=== PATIENT | male | born 1945 | race Caucasian/White ===

== ENCOUNTER 2019-04-29 15:28 | Emergency (ER) | payer MEDICARE, OTHER ==
--- NOTE | 2019-04-29 15:43 | ED Physician Documentation ---
History of Present Illness - Stated complaint Stated Complaint: SOA - Chief complaint Chief Complaint: Resp - History obtained from History obtained from: Patient - Additonal information Additional information: Patient is a 73-year-old male with history of congestive heart failure reported EF of 20% as evidenced on echocardiogram performed in [place] last month. Patient is presenting today with worsening shortness of breath on exertion. Patient is traveling from [place] and returns next week. Patient reports that he was admitted and had extensive work-up last month including cardiac cat h, CT imaging, echocardiogram and was discharged to a shelter facility of which she left several weeks ago. Patient has been compliant with all medications and is able to provide a partial medication list. Patient is not currently on anticoagulation. Patient denies chest pain, but admits to shortness of breath. No cough or fever. No abdominal pain, nausea, vomiting, urinary changes, or stool changes. Patient also denies paresthesias, paralysis, leg swelling or pain. However, he does state that he has had a sensation of heaviness in his legs which caused him to collapse yesterday without injury. No other improving or worsening factors noted. Review of Systems Constitutional: denies: Fever Cardiac: denies: Chest pain / pressure, Palpitations Respiratory: reports: Dyspnea. denies: Cough GI: denies: Abdominal Pain, Nausea, Vomiting, Constipation, Diarrhea : denies: Dysuria Musculoskeletal: denies: Extremity pain Neurologic: denies: Focal weakness, Numbness PD PAST MEDICAL HISTORY - Past Medical History Past Medical History: Yes Cardiovascular: Congestive heart failure - Past Surgical History Cardiovascular: Pacemaker - Present Medications Home Medications: Ambulatory Orders Medication Instructions Recorded Confirmed Amiodarone [Pacerone] 200 mg PO DAILY 04/29/19 04/29/19 Azithromycin [Zithromax] 250 mg PO DAILY #4 tablet 04/29/19 Carvedilol 6.25 mg PO DAILY 04/29/19 04/29/19 Sacubitril/Valsartan [Entresto 24 1 each PO DAILY 04/29/19 04/29/19 mg-26 mg Tablet] Tamsulosin [Flomax] 0.4 mg PO DAILY 04/29/19 04/29/19 - Allergies Allergies/Adverse Reactions: Allergies Allergy/AdvReac Type Severity Reaction Status Date / Time No Known Drug Allergies Allergy Verified 04/29/19 15:39 PD ED PE NORMAL - Vitals Vital signs reviewed: Yes - General General: Alert and oriented X 3, No acute distress, Well developed/nourished - HEENT HEENT: Atraumatic, Moist mucous membranes - Cardiac Cardiac: RRR, No murmur - Respiratory Respiratory: Clear bilaterally. No: No respiratory distress - Abdomen Abdomen: Normal bowel sounds, Soft, Non tender, Non distended - Derm Derm: Normal color, Warm and dry, No rash - Extremities Extremities: No deformity, No tenderness to palpate - Neuro Neuro: Alert and oriented X 3, No motor deficit, No sensory deficit - Psych Psych: Normal mood, Normal affect Results - Vitals Vitals: Vital Signs - 24 hr 04/29/19 04/29/19 04/29/19 15:31 15:41 16:03 Temperature 36.4 C L Heart Rate 79 71 Respiratory 34 H 26 H 24 Rate Blood Pressure 117/48 L 113/68 O2 Saturation 55 L 93 100 04/29/19 04/29/19 04/29/19 16:30 17:00 17:30 Temperature Heart Rate 75 72 71 Respiratory 23 21 26 H Rate Blood Pressure 121/72 111/68 105/67 O2 Saturation 96 92 93 04/29/19 04/29/19 04/29/19 18:00 18:30 19:00 Temperature Heart Rate 73 69 69 Respiratory 20 20 21 Rate Blood Pressure 111/70 97/58 L 116/79 O2 Saturation 96 98 98 04/29/19 04/29/19 04/29/19 19:19 19:30 20:03 Temperature Heart Rate 75 73 Respiratory 26 H 26 H Rate Blood Pressure 106/66 108/69 O2 Saturation 90 L 93 94 04/29/19 04/29/19 20:22 20:30 Temperature Heart Rate 76 Respiratory 22 Rate Blood Pressure 130/79 O2 Saturation 88 L 93 Oxygen O2 Source Nasal cannula Oxygen Flow Rate 2 - EKG (time done) 1536 Rate: Rate (enter#) (75) Rhythm: NSR, Paced Intervals: Prolonged QT - Labs Labs: Laboratory Tests 04/29/19 04/29/19 04/29/19 15:54 15:54 15:54 WBC 10.1 RBC 3.61 L Hgb 11.6 L Hct 34.7 L MCV 96.1 H MCH 32.1 H MCHC 33.4 RDW 14.0 Plt Count 500 H MPV 8.4 Neut # (Auto) 6.3 Lymph # (Auto) 2.2 Haakon # (Auto) 1.0 Eos # (Auto) 0.3 Baso # (Auto) 0.1 Absolute Nucleated RBC 0.00 Nucleated RBC % 0.0 VBG pH VBG pCO2 VBG pO2 VBG HCO3 VBG Total CO2 VBG O2 Saturation VBG Base Excess Sodium 137 Potassium 3.7 Chloride 100 L Carbon Dioxide 21 Anion Gap 16.0 H BUN 19 Creatinine 0.8 Estimated GFR (MDRD) 95 Glucose 141 H Lactic Acid Calcium 9.0 Total Bilirubin 0.7 AST 19 ALT 12 Alkaline Phosphatase 86 Troponin I < 0.04 B-Natriuretic Peptide Total Protein 7.3 Albumin 3.5 Globulin 3.8 Albumin/Globulin Ratio 0.9 L Lipase 31 Urine Color Urine Clarity Urine pH Ur Specific Nerinx Urine Protein Urine Glucose (UA) Urine Ketones Urine Occult Blood Urine Nitrite Urine Bilirubin Urine Urobilinogen Ur Leukocyte Esterase Ur Microscopic Review Urine Culture Comments 04/29/19 04/29/19 04/29/19 15:54 15:54 16:10 WBC RBC Hgb Hct MCV MCH MCHC RDW Plt Count MPV Neut # (Auto) Lymph # (Auto) Haakon # (Auto) Eos # (Auto) Baso # (Auto) Absolute Nucleated RBC Nucleated RBC % VBG pH 7.406 VBG pCO2 38.2 L VBG pO2 15.8 L VBG HCO3 23.5 VBG Total CO2 24.6 VBG O2 Saturation 20.0 L VBG Base Excess -1.0 Sodium Potassium Chloride Carbon Dioxide Anion Gap BUN Creatinine Estimated GFR (MDRD) Glucose Lactic Acid 2.5 H Calcium Total Bilirubin AST ALT Alkaline Phosphatase Troponin I B-Natriuretic Peptide 92 Total Protein Albumin Globulin Albumin/Globulin Ratio Lipase Urine Color Urine Clarity Urine pH Ur Specific Nerinx Urine Protein Urine Glucose (UA) Urine Ketones Urine Occult Blood Urine Nitrite Urine Bilirubin Urine Urobilinogen Ur Leukocyte Esterase Ur Microscopic Review Urine Culture Comments 04/29/19 16:42 WBC RBC Hgb Hct MCV MCH MCHC RDW Plt Count MPV Neut # (Auto) Lymph # (Auto) Haakon # (Auto) Eos # (Auto) Baso # (Auto) Absolute Nucleated RBC Nucleated RBC % VBG pH VBG pCO2 VBG pO2 VBG HCO3 VBG Total CO2 VBG O2 Saturation VBG Base Excess Sodium Potassium Chloride Carbon Dioxide Anion Gap BUN Creatinine Estimated GFR (MDRD) Glucose Lactic Acid Calcium Total Bilirubin AST ALT Alkaline Phosphatase Troponin I B-Natriuretic Peptide Total Protein Albumin Globulin Albumin/Globulin Ratio Lipase Urine Color YELLOW Urine Clarity CLEAR Urine pH 5.5 Ur Specific Nerinx 1.020 Urine Protein NEGATIVE Urine Glucose (UA) NEGATIVE Urine Ketones NEGATIVE Urine Occult Blood NEGATIVE Urine Nitrite NEGATIVE Urine Bilirubin NEGATIVE Urine Urobilinogen 0.2 (NORMAL) Ur Leukocyte Esterase NEGATIVE Ur Microscopic Review NOT INDICATED Urine Culture Comments NOT INDICATED PD MEDICAL DECISION MAKING - ED course Complexity details: reviewed results, re-evaluated patient, considered differential, d/w patient, d/w family ED course: Patient presenting with new onset hypoxia and shortness of breath, particularly with exertion concerning for cardiac pathology most particularly acute CHF exacerbation, but also considered PE, ACS, AL, unstable angina, aneurysm, dissection. Feel that CHF is the likely cause as opposed to the latter listed previously, particularly given lack of chest pain complaint. Additionally, patient had extensive cardiac work-up including catheterization, CTs, echocardiograms in the past 1 month which did not find evidence of significant stenosis and patient did not require coronary stenting. Do not feel that there is likely going to be a significant change from then until now. However, obtained EKG which did not reflect ischemia. Cardiac markers are also within normal limits including BNP and troponin. Do not feel patient requires repeat cardiac markers given duration of symptoms and previous recent cardiac work-up. Patient continued on supplemental oxygen. Screening lab work and urinalysis obtained, as well as chest x-ray. Screening lab work did not find significant leukocytosis, but lactate slightly elevated and VBG reflective of hypoxia. Patient's H&H decreased, but unsure of his baseline. Do not feel he requires transfusion today. Urinalysis unremarkable. Chest x-ray concerning for groundglass and reticular opacities in the bases. Had extensive discussion with patient during initial interview and again upon multiple re-evaluations. Patient is absolutely adamant that he does not want to be admitted and wants to be discharged home at the end of his evaluation. Discussed at length with patient and family the risks of such given my many concerns as listed above. Given the concern for pneumonia on chest x-ray, discussed starting antibiotics and as patient was recently hospitalized, would recommend IV antibiotics and admission. Again, patient declines and we eventually agreed that patient twill receive Rocephin and azithromycin. Patient to be treated as community-acquired so that this can be transitioned to oral medications upon discharge today as patient again refuses admission. Patient is made aware of this distinction between antibiotics and types of pneumonia. Patient also made aware of a ntibiotic reactivity with his cardiac medications, particularly amiodarone. CTA chest additionally obtained which reflected similar findings as the chest x-ray including no evidence of PE. Patient advised of results again. Again, recommended admission and patient declined. Patient signed AMA paperwork. Provided printouts and disc of all imaging. Worked significantly with respiratory therapy to try to obtain outpatient oxygen for this patient. Patient amenable to paying [id number] for this. RT able to arrange for oxygen at home. Otherwise, again patient refusing admission and he and family are comfortable with discharge plan including use of oxygen, oral antibiotics, close follow-up, and strict return precautions. Departure - Departure Disposition: Home, Self Care Clinical Impression: Hypoxia Pneumonia Qualifiers: Pneumonia type: due to unspecified organism Laterality: unspecified laterality Lung location: unspecified part of lung Qualified Code(s): J18.9 - Pneumonia, unspecified organism Congestive heart failure Qualifiers: Heart failure type: unspecified Heart failure chronicity: chronic Qualified Code(s): I50.9 - Heart failure, unspecified Condition: Fair Instructions: ED CHF General, ED Pneumonia Adult Follow-Up: your,molecular spectroscopist [Other] - Tomorrow Prescriptions: Azithromycin [Zithromax] 250 mg PO DAILY #4 tablet Comments: Please continue all home medications as previously instructed. Please take azithromycin starting tomorrow through completion to treat possible pneumonia. Please use oxygen as prescribed. Please contact your molecular spectroscopist, as well as your primary care physician on Wednesday. Return to ED sooner if experience worsening symptoms or have other concerns.
[2019-04-29 16:01] LABS: BASOPHILS # (AUTO) 0.1 10^3/uL (0.0-0.1); BASOPHILS % (AUTO) 1.1 %; EOSINOPHILS # (AUTO) 0.3 10^3/uL (0.0-0.7); EOSINOPHILS % (AUTO) 3.4 %; HGB - HEMOGLOBIN 11.6 g/dL (14.0-18.0); LYMPHOCYTES # (AUTO) 2.2 10^3/uL (1.5-3.5); LYMPHOCYTES % (AUTO) 21.7 %; MEAN CORPUSCULAR HEMOGLOBIN 32.1 pg (27.0-31.0); MEAN CORPUSCULAR HGB CONC 33.4 g/dL (32.0-36.0); MEAN CORPUSCULAR VOLUME 96.1 fL (80.0-94.0); MEAN PLATELET VOLUME 8.4 fL (7.4-11.4); MONOCYTES % (AUTO) 10.3 %; NEUTROPHILS # (AUTO) 6.3 10^3/uL (1.5-6.6); PLT - PLATELET COUNT 500 10^3/uL (130-450); RED BLOOD COUNT 3.61 10^6/uL (4.70-6.10); WHITE BLOOD COUNT 10.1 x10^3/uL (4.8-10.8)
[2019-04-29 16:15] LABS: ALBUMIN 3.5 g/dL (3.2-5.5); ALBUMIN/GLOBULIN RATIO 0.9 (1.0-2.2); BILIRUBIN,TOTAL 0.7 mg/dL (0.2-1.0); CREATININE 0.8 mg/dL (0.6-1.2); TOTAL PROTEIN 7.3 g/dL (6.7-8.2)
[2019-04-29 16:17] LABS: VBG PCO2 38.2 mmHg (41-51); VBG PH 7.406 (7.31-7.41); VBG PO2 15.8 mmHg (25-47); VBG TOTAL CO2 24.6 mmol/L (24-29)
--- NOTE | 2019-04-29 16:43 | XRAY Report ---
Reason: sob Procedure Date: 04/29/2019 Accession Number: [id number] / [id number] Procedure: XR - Chest 1 View X-Ray CPT Code: 66366 FULL RESULT: EXAM: CHEST RADIOGRAPHY EXAM DATE: 04/29/2019 04:24 PM. CLINICAL HISTORY: Shortness of breath COMPARISON: None. TECHNIQUE: 1 view. FINDINGS: Lungs/Pleura: Diffuse groundglass and reticular opacities, most pronounced at the bilateral bases. No pleural effusion or pneumothorax. Mediastinum: Normal cardiomediastinal contour. Left-sided bipolar AICD with atrial pacing lead and ventricular defibrillating lead. Other: The bones are unremarkable. IMPRESSION: Diffuse groundglass and reticular opacities, most pronounced at the bilateral bases. Differential considerations include edema, infection, and interstitial lung disease. RADIA
[2019-04-29] MEDS ORDERED: cefTRIAXone 1 GM in SODIUM CHLORIDE 0.9% MINIBAG 100 ML IV STA (16:46)
[2019-04-29] MEDS ORDERED: AZITHROMYCIN INJ 500 MG in SODIUM CHLORIDE 0.9% 250 ML IV STA (16:48)
[2019-04-29 17:06] LABS: BILIRUBIN,URINE NEGATIVE (NEGATIVE); GLUCOSE, URINE (UA) NEGATIVE (NEGATIVE); KETONES,URINE (UA) NEGATIVE (NEGATIVE); LEUKOCYTE ESTERASE, URINE NEGATIVE (NEGATIVE); NITRITE,URINE NEGATIVE (NEGATIVE); OCCULT BLOOD,URINE NEGATIVE (NEGATIVE); PH,URINE 5.5 PH (5.0-7.5); PROTEIN,URINE NEGATIVE (NEGATIVE); UROBILINOGEN,URINE 0.2 (NORMAL) E.U./dL (NORMAL)
[2019-04-29 17:07] LABS: CLARITY,URINE CLEAR (CLEAR)
[2019-04-29] MEDS ORDERED: IOVERSOL 320 100 ML VIAL IVP ONE ×2 (17:37→17:57)
--- NOTE | 2019-04-29 18:18 | CT Report ---
Reason: EF 20%, new hypoxia, SOB, recent hospitalization Procedure Date: 04/29/2019 Accession Number: [id number] / [id number] Procedure: CT - ANGIO CHEST W/WO CPT Code: FULL RESULT: EXAM: CT ANGIOGRAM CHEST EXAM DATE: 04/29/2019 05:56 PM. CLINICAL HISTORY: EF 20%. New hypoxia and shortness of breath. Recent hospitalization. COMPARISON: CHEST 1 VIEW 04/29/2019 4:04 PM. TECHNIQUE: Routine helical imaging was performed through the chest in the pulmonary arterial phase. IV Contrast: OPTI 320 80ML. Reconstructions: Coronal 3-D MIP reconstructions.Sagittal and coronal. In accordance with CT protocol optimization, one or more of the following dose reduction techniques were utilized for this exam: automated exposure control, adjustment of mA and/or KV based on patient size, or use of iterative reconstructive technique. FINDINGS: Pulmonary Arteries: Diagnostic quality: Adequate through the segmental arteries. No pulmonary embolus is seen. Lungs/Pleura: Advanced centrilobular emphysema. Superimposed extensive patchy groundglass opacities, most pronounced in the posterior upper lobes and bilateral basis. Trace left pleural effusion. No pneumothorax. Mediastinum: Heart size is normal. No pericardial effusion. Extensive atherosclerotic calcifications in the left anterior descending and circumflex coronary arteries. Left-sided bipolar AICD with the ventricular defibrillating lead and atrial pacing lead. Mild atherosclerotic calcifications within the aorta. No aortic aneurysm or dissection. Multiple mildly enlarged mediastinal nodes, for example a 1.6 cm right hilar node (4/63) and a 1.9 cm subcarinal node (/82). Upper Abdomen: Unremarkable. Bones: Unremarkable. Other: None. IMPRESSION: 1. Advanced centrilobular emphysema with superimposed extensive patchy groundglass opacities, which could represent edema, infection, or interstitial lung disease. 2. Multiple mildly enlarged mediastinal nodes, nonspecific, possibly reactive. 3. Trace left pleural effusion. 4. No pulmonary embolus. RADIA
[2019-04-29 21:38] VITALS: BP 105/60
== END 2019-04-29 22:02 | disposition home or self-care (01) ==
LOC: ED 15:28
DX: I50.9 Heart failure, unspecified (principal); J18.9 Pneumonia, unspecified organism; R09.02 Hypoxemia; I45.81 Long QT syndrome; Z95.0 Presence of cardiac pacemaker
CPT/HCPCS: 36415; 71045; 71275; 80053; 81003; 82803; 83605; 83690; 83880; 84484; 85025; 87040; 93005; 96365; 96367; 99283; 99284; Q9967; 81001; 87086